=== PATIENT | female | born 1980 | race Caucasian/White ===

== ENCOUNTER 2022-06-16 12:56 | Outpatient (CLI) | payer OTHER, SELFPAY ==
--- NOTE | 2022-06-16 13:18 | ECG_ITS ---
Measurements Intervals [place] Rate: 81 P: 76 IA: 145 QRS: 69 QRSD: 96 T: 31 QT: 366 QTc: 427 Interpretive Statements SINUS RHYTHM WITH SINUS ARRHYTHMIA MINOR ST SEGMENT ABNORMALITY BORDERLINE ECG NO PREVIOUS ECG AVAILABLE FOR COMPARISON Electronically Signed On 06-16-2022 15:16:26 [employer] by Jessee Olvera M.D.
[2022-06-16 13:42] LABS: Basophils Absolute Auto 0.1 K/mm3 (0.0-0.1); Basophils Percent Auto 0.7 % (0.2-1.2); Eosinophils Absolute Auto 0.3 K/mm3 (0-0.3); Eosinophils Percent Auto 2.8 % (0-4.4); Hematocrit 38.9 % (37.0-47.0); Hemoglobin 12.9 g/dL (12.0-15.0); Immature Granulocyte Absolute 0.03 K/mm3 (0.00-0.031); Immature Granulocyte Percent A 0.3 % (0-0.5); Lymphocytes Percent Auto 33.7 % (18.3-44.2); Mean Corpuscular HGB Conc 33.2 g/dl (32-36); Mean Corpuscular Volume 93.5 fl (80-100); Mean Platelet Volume 10.3 fl (7.4-10.4); Monocytes Absolute Auto 0.6 K/mm3 (0.1-0.6); Monocytes Percent Auto 6.6 % (2.6-8.5); Neutrophils Absolute Auto 5.3 K/mm3 (1.3-6.7); Neutrophils Percent Auto 55.9 % (45.5-73.1); Platelet Count Result 341 k/mm3 (150-375); Red Blood Count 4.16 M/mm3 (4.2-5.4); Red Cell Distribution Width 12.9 % (11.5-14.5); White Blood Count 9.5 K/mm3 (4.5-10.0)
== END 2022-06-16 12:57 | disposition home or self-care (01) ==
PROVIDERS: Visit Provider Obstetrics & Gynecology
DX: R10.2 Pelvic and perineal pain (principal); F17.210 Nicotine dependence, cigarettes, uncomplicated; Z01.818 Encounter for other preprocedural examination; R94.31 Abnormal electrocardiogram [ECG] [EKG]
CPT/HCPCS: 36415; 85025; 86850; 86900; 86901; 93005

== ENCOUNTER 2022-06-25 01:06 | Day surgery (SDC) | payer OTHER, SELFPAY ==
[2022-06-11 12:44] VITALS: BMI 26.6
--- NOTE | 2022-06-11 12:50 | PC.NURSE ---
Report to the Outpatient Waiting Room, entrance under the green pavilion located off [facility], at time 10:00 on date 06/25/22. Planned Procedure Time: 12:00. Time changes happen often and if your time is changed the preop area will call you the afternoon before. - You and your visitor will be asked to self-screen and do not enter if you have any COVID symptoms. - Only one visitor is requested with a max of two and NO children visitors are allowed at this time. - The patient visitor may be requested to leave or wait in car when not with patient due to distancing restrictions. - A mask is optional within the hospital. Patients may have clear liquids (water, carbonated beverages, clear teas, apple juice) until 3 hours prior to surgery (9:00) with a maximum of 20 ounces. - No food from midnight until time of surgery Take the following medications with a SIP of water the morning of surgery: NONE Medications to discontinue per physician: N/A Date to take last dose: N/A Please no make-up, nail turkish, hairspray, perfume, deodorant, or body powder the day of surgery. No jewelry (including any body piercings) or valuables the day of surgery, leave them at home. Please take a shower or bath the night before, or the morning of, surgery with an antibacterial soap. Wear comfortable, loose fitting clothing. - Jewelry must be removed prior to entering the operating room. Rings and piercings that are not removed may be cut off. - The hospital will not accept responsibility for valuables. - Please leave all valuables, including medications, at home the day of surgery. If you are going home after surgery, a licensed charter bus driver must drive you home. - NO public transportation without another adult if you receive anesthesia. - We recommend that an adult stay with you for 24 hours following discharge. - We also recommend that you do not drive, make important decision, drink alcoholic beverages, or take any drugs that were not prescribed by your health care provider for at least 24 hours after your discharge time. Follow any additional instructions given to you from your surgeon. If you or anyone in your household have experienced Covid symptoms in the past week, please notify your surgeon or the nurse liaison at the phone number below for possible testing. Telephone instructions given to PT - MARI TILLMAN and asked if any additional questions and then verbalized understanding. Patient advised to call surgeon office or pre surgery nurse liaison [phone] if any additional questions.
--- NOTE | 2022-06-24 07:32 | P.HP_ITS ---
H&P: HPI History of Present Illness Date/Time: 06/24/22 07:32 Chief Complaint: patient is admitted for robotic hysterectomy bilateral salpingectomy secondary to uterine prolapse pain and dyspareunia Narrative: this is a 42-year-old female who is admitted for robotic hysterectomy bilateral salpingectomy secondary to uterine prolapse pelvic pain and dyspareunia. She has signed the [facility] hysterectomy information. She received the ACOG handout entitled hysterectomy as well as the itchy handout. Risks and benefits reviewed including but not exclusive of aspiration pneumonia bleeding, transfusion, infection, perforation injury to bowel, bladder, ureters, or other internal organs with need for open laparotomy. She received the ACOG handout entitled hysterectomy she asked to proceed PMFSH Social History Social History Smoking packs per day: 1 Smoking cigarettes per day: 20.0 Years smoked: 20 Smoking pack-years: 20.00 Smoking status: Current every day smoker Tobacco type: cigarettes Additional smoking assessment comments: IN PROCESS OF CUTTING BACK - DOWN TO 1/2 PACK PER DAY Alcohol intake: current Alcohol use details: RARE Substance use: never Substance use type: does not use Additional living arrangements comments: CHILDREN, BOYFRIEND Spiritual care concerns: No Meds Home Medications and Allergies Home Medications Medication Instructions Recorded Confirmed Type ibuprofen 600 mg tablet 600 mg PO Q6H PRN Pain 06/11/22 06/11/22 History Allergies Allergy/AdvReac Type Severity Reaction Status Date / Time No Known Allergies Allergy Verified 06/11/22 12:43 Exam Const: General: cooperative, healthy appearing and comfortable Nutritional Appearance: average body habitus Orientation/consciousness: oriented to person, oriented to place and oriented to time HENMT: Head: normal to inspection Resp: Effort & Inspection: normal respiratory effort Cardio: Rate: regular rate Rhythm: regular rhythm Heart sounds: S1 normal heart sound present and S2 normal heart sound present GI: Inspection: normal to inspection : External Female Exam: normal external appearance Speculum Exam - Vagina: normal appearance of the vagina Speculum Exam - Cervix: normal appearance of the cervix Bimanual exam- vagina & uterus: enlarged ( 2nd degree prolapse was present) Assessment and Plan Assessment and plan (1) Uterine prolapse: Code(s): N81.4 - Uterovaginal prolapse, unspecified Status: Acute (2) Enlarged uterus: Code(s): N85.2 - Hypertrophy of uterus Status: Acute (3) Pelvic pain: Code(s): R10.2 - Pelvic and perineal pain Status: Acute (4) Dyspareunia: Status: Acute Plan robotic total vaginal hysterectomy and bilateral salpingectomy
[2022-06-25] VITALS (12 sets, daily range): BP systolic 109–134; BP diastolic 63–89; PULSE 55–80; RESP 14–20; TEMP 36.1–36.8; O2SAT 94–100
--- NOTE | 2022-06-25 05:59 | WPDHPUPDATE1 ---
History and Physical Update Update Date/Time: 06/25/22 05:59 History and Physical has been reviewed, including an updated exam of the patient. There are NO changes in the patient's condition. Risks, benefits, and alternatives have been discussed and questions answered. Patient agrees to proceed with procedure.
[2022-06-25] MEDS: ACETAMINOPHEN 500 MG TABLET 1000 MG PO (10:35)
[2022-06-25] MEDS: KETOROLAC 15 MG/ML VIAL (*BKC) IV PUSH (10:35)
[2022-06-25] MEDS: LACTATED RINGERS 1,000 ML 30 ML IV CONT ×2 (10:35→13:18)
--- NOTE | 2022-06-25 10:52 | P.PNAN_ITS ---
Anes - Initial Pre Proc Eval Procedure: Operation Date: 06/25/22 12:00 Proposed Procedures p Robotic Assisted Total Vaginal Hysterectomy with Bilateral Salpingectomy - Rigo Hatch MD Date/Time: 06/25/22 10:52 Surgeon: Rigo Hatch MD Pre Op Diagnosis: pelvic pain, dyspareunia, pelvic prolapse Patient Data Age: 42 Gender: F Height: 1.7 m Weight: 79.7 kg Last Vital Signs Temp 36.1 C L 06/25/22 10:07 Pulse 78 06/25/22 10:07 Resp 16 06/25/22 10:07 BP 124/89 06/25/22 10:07 Pulse Ox 100 06/25/22 10:07 O2 Del Method Room Air 06/25/22 10:07 Allergies Allergy/AdvReac Type Severity Reaction Status Date / Time No Known Allergies Allergy Verified 06/25/22 10:13 Home Medications Medication Instructions Recorded Confirmed Type ibuprofen 600 mg tablet 600 mg PO Q6H PRN Pain 06/11/22 06/25/22 History hydrocodone 5 mg-acetaminophen 325 1 tablet PO Q4H PRN pain #20 tabs 06/25/22 Rx mg tablet Patient hx anesthesia problems: none Family hx anesthesia problems: none Results Review: All pre-operative results and documents have been reviewed as part of the pre- operative evaluation. [facility] Social History Social History Smoking packs per day: 1 Smoking cigarettes per day: 20.0 Years smoked: 20 Smoking pack-years: 20.00 Smoking status: Current every day smoker Tobacco type: cigarettes Additional smoking assessment comments: IN PROCESS OF CUTTING BACK - DOWN TO 1/2 PACK PER DAY Alcohol intake: current Alcohol use details: RARE Substance use: never Substance use type: does not use Living arrangements: with family Additional living arrangements comments: CHILDREN, BOYFRIEND Spiritual care concerns: No Anes - Eval Final PreProcedure Day of Procedure 06/25/22 10:52 Patient weight: overweight Heart: regular rate and rhythm Lungs: clear to auscultation Airway: Mallampati scale class II Neurological: alert and oriented Last oral intake: >/= 8 hours ASA classification: II Emergent: no Anesthetic plan: proceed Anesthesia type and monitoring: general ETT and standard monitoring Results Review: All pre-operative results and documents have been reviewed as part of the pre- operative evaluation. Informed Consent: The patient's anesthetic plan and its attendant risks and benefits were discussed with the patient/family/POA. Questions were solicited and answers provided to the satisfaction of the patient/family/POA.
[2022-06-25] MEDS: ceFAZolin 2 GM/D5W 50 ML 2 GM/50 ML BAG IVPB (11:54)
--- NOTE | 2022-06-25 13:06 | W.PM.PROC2 ---
Procedure Note - Detailed Date of Procedure 06/25/22 Pre-op Diagnosis pelvic pain, dyspareunia, pelvic prolapse Post-op Diagnosis Same Procedure Performed Robotic total vaginal hysterectomy bilateral salpingectomy Surgeon Rigo Hatch MD Anesthesia General Indications this is 42-year-old female with a large uterus pelvic cyst Findings fibroid uterus tubes status post tubal ligation adhesions posteriorly to from the cul-de-sac to the posterior surface of right ovarian cyst which was full of clear fluid Description of Procedure patient was prepped draped in normal sterile fashion placed in the dorsal lithotomy position. Under excellent general trach anesthesia weighted speculum placed posterior fornix vagina. Anterior lip of the cervix grasped with a single-tooth tenaculum uterus sounded to 10cm. Serial dilatation fragmented out performed followed by passes 8. TOYIN and 3. Cold cup. Next the 16 [place] catheter was placed in the bladder and bladder drained of clear urine. The weighted speculum was removed and the gloves were changed. A supraumbilical incision made the Veress needle passed in the abdomen. Abdomen filled with CO2 gas to 15 was mercury the 8mm trocar advanced in the abdomen downside visualized no injury seen. Gas reattached patient placed in Trendelenburg and right left lateral quadrant incisions made. 8Mm trocars advanced under direct visualization assuring no injury. Right upper quadrant incision made the 8mm trocar advanced under direct visualization assuring no injury. The robot was docked. Attention was turned to the legal counsel. The uterus was large irregular. This was consistent with uterine fibroids the tubes were status post tubal ligation. Some adhesions were seen posteriorly from uterus to the cul-de-sac. The right ovarian cyst and this was opened in linear fashion and drained of clear follicular fluid. The tubes status post tubal ligation. The left round ligament grasped, burned, cut. Anterior bladder flap was formed by sharply dissecting peritoneum and reflecting bladder caudally away from the uterus and cervix to the opposite round ligament was clamped, burned, cut. Next remnant of left fallopian tube was skeletonized clamped and brought burned and brought away from the left ovary in like fashion the small portion the right tube was removed. The utero-ovarian ligament on the left was skeletonized to conserve left ovary this was clamped, burned, cut. Next the right utero-ovarian ligament skeletonized clamping burning cutting and bringing this to the previously cut round ligament conserving the right ovary. The left cardinal broad ligaments were serially skeletonized clamping burning cutting and hugging the cervix uterus and to the large uterine vessels could be seen on the left these were individually clamped, burned, cut. In like fashion the cardinal broad ligaments on right were serially skeletonized clamping burning cutting hugging the uterine cervix into the uterine vessels could be seen the right these were then individually clamped, burned. Excellent blanching uterus was noted and a colpotomy incision made. Uterus was then bivalved this was too big to go through the vaginal incision it was brought out in 2 pieces. The vagina was then closed with continuous running 0V lock from lateral edge to lateral edge back to the midline. Irrigation undertaken until clear blood loss estimated 25cc. The patient was awakened went to recovery in satisfactory condition. All sponge, needle instrument were correct. There were no immediate complications Estimated Blood Loss 25 Drains No Packing No Pathology Yes Complications No immediate complications Condition Stable Disposition PACU
[2022-06-25] MEDS: fentaNYL CITRATE INJ (*CRX) 100 MCG/2 ML VIAL 25 MCG IV PUSH ×4 (13:37→14:16)
--- NOTE | 2022-06-25 14:52 | OBPPTRN ---
Patient transferred to post room #280 via stretcher. Transfered to bed,using the maxi air and the 3 B's. Oriented to unit, room, information board, and admission packet. Patient verbalizes understanding.
[2022-06-25] MEDS: DEXTROSE 5%/LACTATED RINGERS 1,000 ML 125 ML IV CONT (15:11)
[2022-06-25] MEDS: KETOROLAC 30 MG/ML VIAL (*BKC) IV PUSH (15:13)
[2022-06-25] MEDS: HYDROcodone/acetaminophen (*CRX) 5-325 MG TABLET 1 TAB PO (21:41)
[2022-06-26 04:48] VITALS: BP 122/80; PULSE 66; RESP 14; TEMP 36.7; O2SAT 98
[2022-06-26 05:49] LABS: Basophils Percent Auto 0.2 % (0.2-1.2); Eosinophils Percent Auto 0.1 % (0-4.4); Hematocrit 34.7 % (37.0-47.0); Hemoglobin 11.6 g/dL (12.0-15.0); Immature Granulocyte Absolute 0.08 K/mm3 (0.00-0.031); Immature Granulocyte Percent A 0.4 % (0-0.5); Lymphocytes Absolute Auto 1.88 K/mm3 (0.9-3.2); Lymphocytes Percent Auto 10.1 % (18.3-44.2); Mean Corpuscular HGB Conc 33.4 g/dl (32-36); Mean Corpuscular Hemoglobin 30.9 pg (26-34); Mean Corpuscular Volume 92.5 fl (80-100); Monocytes Absolute Auto 1.4 K/mm3 (0.1-0.6); Monocytes Percent Auto 7.3 % (2.6-8.5); Neutrophils Absolute Auto 15.3 K/mm3 (1.3-6.7); Neutrophils Percent Auto 81.9 % (45.5-73.1); Platelet Count Result 291 k/mm3 (150-375); Red Blood Count 3.75 M/mm3 (4.2-5.4); Red Cell Distribution Width 12.9 % (11.5-14.5); White Blood Count 18.7 K/mm3 (4.5-10.0)
--- NOTE | 2022-06-26 07:13 | P.DS_ITS ---
DS: Admitting Diagnosis Discharge Date 06/26/2022 in Admitting Diagnosis enlarged uterus/pelvic pain /uterine prolapse DS: Discharge Diagnosis Discharge Diagnosis (1) Dyspareunia: Status: Acute (2) Pelvic pain: Code(s): R10.2 - Pelvic and perineal pain Status: Acute (3) Enlarged uterus: Code(s): N85.2 - Hypertrophy of uterus Status: Acute (4) Uterine prolapse: Code(s): N81.4 - Uterovaginal prolapse, unspecified Status: Acute DS: Summary Hospital Course Reason for hospitalization: patient was admitted for robotic hysterectomy and bilateral salpingectomy. She underwent an unremarkable procedure on 06/25/2022. Her hospital course was unremarkable. She remained afebrile. She was up, ambulating, voiding without difficulty, eating regular diet, generally without complaints. Hospital Course: See above Time Spent with Patient Time attestation: Total time spent providing and/or coordinating discharge services: Exam Const: General: cooperative, healthy appearing and comfortable Nutritional Appearance: average body habitus Orientation/consciousness: oriented to person, oriented to place and oriented to time HENMT: Head: normal to inspection Resp: Effort & Inspection: normal respiratory effort Cardio: Rate: regular rate Rhythm: regular rhythm Heart sounds: S1 normal heart sound present and S2 normal heart sound present GI: Inspection: normal to inspection and incision ( wounds clean dry and intact) DS: Data Data Completed and Pending Pending studies at discharge: Pending at discharge 06/25/22 12:29 Surgical [PTH] Routine Labs on day of discharge: Labs from last 24 hours 06/26/22 05:22 WBC 18.7 H RBC 3.75 L Hgb 11.6 L Hct 34.7 L MCV 92.5 MCH 30.9 MCHC 33.4 RDW 12.9 Plt Count 291 MPV 11.0 H Immature Gran % (Auto) 0.4 Neut % (Auto) 81.9 H Lymph % (Auto) 10.1 L [place] % (Auto) 7.3 Eos % (Auto) 0.1 Baso % (Auto) 0.2 Lymph # (Auto) 1.88 [place] # (Auto) 1.4 H Eos # (Auto) 0.0 Baso # (Auto) 0.0 Abs Immat Gran (auto) 0.08 H Absolute Neuts (auto) 15.3 H Absolute Nucleated RBC 0.0 Nucleated RBC % 0.0 Discharge Plan Discharge Patient Disposition: Home, Self-Care Stand Alone Forms: General Discharge Instructions Follow-up/Referrals: Rigo Thornton MD [Physician] - Discharge Medications: New hydrocodone-acetaminophen 5-325 mg tablet 1 tablet PO Q4H PRN (Reason: pain) Qty: 20 0RF Continued ibuprofen 600 mg Tablet 600 mg PO Q6H PRN (Reason: Pain)
--- NOTE | 2022-06-26 07:16 | PM.GYNPNOP ---
MISSILE INSPECTOR PREFLIGHT - A/P Postoperative Procedures: Procedures Operation Date: 06/25/22 12:00 Actual Procedure Side Surgeon p Robotic Assisted Total Vaginal Hysterectomy with Bilateral Salpingectomy Bilateral Rigo Hatch MD Postoperative day: 1 Postoperative status: doing well Postoperative plan: routine post-op care, ambulate, advance diet and discharge Time Spent With Patient Time: Total time spent is greater than 50% in coordination of care (as documented) at patient's floor/unit and/or counseling patient: Time with patient: less than 15 minutes MISSILE INSPECTOR PREFLIGHT- PN:Subj Post-Op Subjective Date/time seen: 06/26/22 07:16 Subjective: patient reports feeling better, patient has no complaints and pain is well controlled Exam Const: General: cooperative, healthy appearing and comfortable Nutritional Appearance: average body habitus Orientation/consciousness: oriented to person, oriented to place and oriented to time HENMT: Head: normal to inspection Resp: Effort & Inspection: normal respiratory effort Cardio: Rate: regular rate Rhythm: regular rhythm Heart sounds: S1 normal heart sound present and S2 normal heart sound present GI: Inspection: normal to inspection and incision ( wounds clean dry and intact) MISSILE INSPECTOR PREFLIGHT - PN: Obj Data Vital Signs Vital Signs: Vital Signs - 24 hr 06/25/22 10:07 06/25/22 13:18 06/25/22 13:30 Temperature 97.0 F L 97.6 F Pulse Rate 78 80 57 L Respiratory Rate 16 16 14 Blood Pressure 124/89 133/77 134/75 Pulse Oximetry 100 100 100 Oxygen Delivery Room Air Simple Face Mask Simple Face Mask Oxygen Flow Rate 8 8 06/25/22 13:45 06/25/22 14:00 06/25/22 14:15 Temperature Pulse Rate 55 L 58 L 55 L Respiratory Rate 18 20 20 Blood Pressure 121/72 116/63 109/65 Pulse Oximetry 100 94 97 Oxygen Delivery Simple Face Mask Room Air Room Air Oxygen Flow Rate 8 06/25/22 14:30 06/25/22 14:45 06/25/22 14:55 Temperature 98.3 F Pulse Rate 61 60 61 Respiratory Rate 16 17 16 Blood Pressure 116/64 115/67 129/87 Pulse Oximetry 95 96 98 Oxygen Delivery Room Air Room Air Oxygen Flow Rate 06/25/22 14:52 06/25/22 14:52 06/25/22 19:29 Temperature 98.3 F 98.3 F Pulse Rate 61 61 71 Respiratory Rate 16 16 16 Blood Pressure 129/87 132/81 Pulse Oximetry 98 98 97 Oxygen Delivery Room Air Room Air Oxygen Flow Rate 06/25/22 23:11 06/25/22 23:11 06/26/22 04:48 Temperature 98.2 F 98.1 F Pulse Rate 62 62 66 Respiratory Rate 18 18 14 Blood Pressure 127/85 122/80 Pulse Oximetry 98 98 98 Oxygen Delivery Room Air Oxygen Flow Rate 06/26/22 04:48 Temperature Pulse Rate 66 Respiratory Rate 14 Blood Pressure Pulse Oximetry Oxygen Delivery Room Air Oxygen Flow Rate Intake/Output Intake/Output: Intake & Output 06/23/22 06/24/22 06/25/22 06/26/22 23:59 23:59 23:59 23:59 Intake Total 790 835 Output Total 185 1625 Balance 605 -790 Meds/Results Medications: Active Medications Generic Name Dose Route Start Last Admin Trade Name Freq PRN Reason Stop Dose Admin Hydrocodone Bitart/Acetaminophen 1 tab 06/25/22 14:49 06/25/22 21:41 Hydrocodone/Acetaminophen (*Crx) 5-325 Mg Tablet PO 1 tab Q3H PRN Administration Pain Rated 5 or Less Hydrocodone Bitart/Acetaminophen 1 tab 06/25/22 14:49 Hydrocodone/Acetaminophen (*Crx) 10-325 Mg Tablet PO Q3H PRN Pain Rated 6 or Greater Docusate Sodium 100 mg 06/25/22 17:00 Docusate Sodium 100 Mg Capsule PO BID JESSA Enoxaparin Sodium 40 mg 06/26/22 09:00 Enoxaparin 40 Mg/0.4 Ml Syringe SUB-Q DAILY JESSA Dextrose/Lactated Ringer's 1,000 mls @ 125 mls/hr 06/25/22 14:49 06/25/22 15:11 Dextrose 5%/Lactated Ringers IV CONT 125 mls/hr .Q8H JESSA Administration Ibuprofen 600 mg 06/25/22 14:49 Ibuprofen 600 Mg Tablet PO Q6H PRN Cramping Ketorolac Tromethamine 30 mg 06/25/22 14:49 06/25/22 15:13 Ketorolac 30 Mg/Ml Vial (*Bkc) IV PUSH 06/30/22 14:4
[2022-06-26] MEDS: IBUPROFEN 600 MG TABLET PO (07:45)
[2022-06-26] MEDS: HYDROcodone/acetaminophen (*CRX) 5-325 MG TABLET 1 TAB PO (07:46)
[2022-06-26] MEDS: DOCUSATE SODIUM 100 MG CAPSULE PO (07:46)
[2022-06-26] MEDS: ENOXAPARIN 40 MG/0.4 ML SYRINGE SUB-Q (07:46)
[2022-06-26 08:00] VITALS: BP 126/83; PULSE 77; RESP 16; TEMP 37.1; O2SAT 100
--- NOTE | 2022-06-26 09:59 | P.PNAN_ITS ---
Anes - Prog Note Post-Op Date/Time: 06/26/22 09:59 Vital Signs: Last Vital Signs Temp 37.1 C 06/26/22 08:00 Pulse 77 06/26/22 08:00 Resp 16 06/26/22 08:00 BP 126/83 06/26/22 08:00 Pulse Ox 100 06/26/22 08:00 O2 Del Method Room Air 06/26/22 07:45 O2 Flow Rate 8 06/25/22 13:45 Pain Score (VAS): 0 I/O: Intake & Output 06/25/22 06/26/22 06/26/22 23:59 07:59 15:59 Intake Total 240 835 Output Total 125 1625 Balance 115 -790 Laboratory Tests 06/26/22 05:22 06/26/22 05:22 WBC 18.7 H RBC 3.75 L Hgb 11.6 L Hct 34.7 L MCV 92.5 MCH 30.9 MCHC 33.4 RDW 12.9 Plt Count 291 MPV 11.0 H Immature Gran % (Auto) 0.4 Neut % (Auto) 81.9 H Lymph % (Auto) 10.1 L [place] % (Auto) 7.3 Eos % (Auto) 0.1 Baso % (Auto) 0.2 Lymph # (Auto) 1.88 [place] # (Auto) 1.4 H Eos # (Auto) 0.0 Baso # (Auto) 0.0 Abs Immat Gran (auto) 0.08 H Absolute Neuts (auto) 15.3 H Absolute Nucleated RBC 0.0 Nucleated RBC % 0.0 Patient Feedback: Patient satisfied with anesthetic care.
== END 2022-06-26 09:30 | disposition home or self-care (01) ==
LOC: ANHSURGERY 09:52 → ANHOB2 14:59
PROVIDERS: Visit Provider Obstetrics & Gynecology
PROC: (CPT 58552; principal; 2022-06-25 12:00)
DX: N81.4 Uterovaginal prolapse, unspecified (principal); N94.10 Unspecified dyspareunia; R10.2 Pelvic and perineal pain; N73.6 Female pelvic peritoneal adhesions (postinfective); N83.201 Unspecified ovarian cyst, right side; F17.210 Nicotine dependence, cigarettes, uncomplicated
CPT/HCPCS: 58552; 58662; S2900; 36415; 85025; 88307; 99199; A9270; J0690; J1100; J1170; J1650; J1885; J2250; J2405; J2710; J3010; J7030; J7120; J7121